=== PATIENT | male | born 1975 | race Caucasian/White ===

== ENCOUNTER 2017-09-08 20:13 | Emergency (ER) | payer OTHER ==
--- NOTE | 2017-09-08 20:34 | EDPHY ---
H & P Time Seen by Provider: 09/08/17 20:14 HPI/ROS: CHIEF COMPLAINT: Chest pain, nausea, dizziness HISTORY OF PRESENT ILLNESS: 41-year-old male presents to the emergency department by ambulance complaining of chest pain, feeling nauseous and dizzy after ingesting marijuana earlier this afternoon. The patient states that his friend made some coconut infused marijuana that he ate he thinks around 4 o' clock this afternoon. He apparently did vomit at home. His is at bedside states that he was feeling very nauseous and feeling like he could not control his arms or legs. He was complaining of some intermittent chest pain. He does have a history of cardiomyopathy. Denies difficulty breathing. He feels that he"can't move". REVIEW OF SYSTEMS: Constitutional: No fever, no chills. Eyes: No double or blurry vision. ENT: No sore throat. Respiratory: No cough, no shortness of breath. Cardiac: chest pain. Gastrointestinal: Nausea, vomited 1 time. No diarrhea. No abdominal pain. Genitourinary: No dysuria. Musculoskeletal: No neck or back pain. Skin: No rashes. Neurological: No headache. Past Medical/Surgical History: Cardiomyopathy on carvedilol Social History: Physical Exam: General Appearance: Alert, moderate distress. Anxious. Afebrile. Tearful. at bedside. Eyes: Pupils equal and round. Extraocular motions are all intact. ENT: Mouth: Mucous membranes moist. Respiratory: No wheezing, rhonchi, or rales, lungs are clear to auscultation. Cardiovascular: Regular rate and rhythm. Gastrointestinal: Abdomen is soft and nontender, no masses, no rebound or guarding, bowel sounds normal. Neurological: Alert and oriented x 3, cranial nerves II through XII grossly intact Skin: Warm and dry, no rashes. Musculoskeletal: Nontender to palpate along the cervical, thoracic or lumbar spine. Neck is supple. Extremities: Full range of motion and no peripheral edema. Psychiatric: Patient is oriented X 3, there is no agitation. Constitutional: Initial Vital Signs Temperature (C) 37.0 C 09/08/17 20:15 Heart Rate 62 09/08/17 20:15 Respiratory Rate 16 09/08/17 20:15 Blood Pressure 131/85 H 09/08/17 20:15 O2 Sat (%) 100 09/08/17 20:15 O2 Delivery Mode Room Air Allergies/Adverse Reactions: No Known Allergies Allergy (Verified 09/08/17 20:48) Home Medications: Medication Instructions Recorded Carvedilol [Coreg (RX)] 25 mg PO BIDMEAL 12/26/11 Sertraline HCl 09/08/17 Medical Decision Making ED Course/Re-evaluation: 41-year-old male presents to the emergency department after ingesting marijuana. He is feeling extremely anxious and feeling cramping pain all over. Patient has a normal neurologic examination. Patient was given IV normal saline. He did vomit 1 time. He is no longer feeling nauseous. His EKG is normal. This was ordered since he did have some transient chest pain after and consuming the marijuana. He denies any other substance abuse. He denies chest pain or difficulty breathing now. Denies headache now. Upon discharge, the patient was able to ambulate. He was tolerating p.o. Fluids. He is comfortable being discharged home. Differential Diagnosis: Including but not limited to adverse medication reaction, adverse drug reaction , anaphylaxis, CVA, myocardial infarction, electrolyte abnormality Departure - Departure Disposition: Home, Routine, Self-Care Clinical Impression: Adverse reaction to cannabis Qualifiers: Encounter type: initial encounter Qualified Code(s): T40.7X5A - Adverse effect of cannabis (derivatives), initial encounter Condition: Good Instructions: Adverse Drug Reaction (ED) Additional Instructions: Return if you develop any chest pain, difficulty breathing or any other concerns. Referrals: Christa Vitale MD [[facility] [place] Primary Care Provider] - As per Instructions (Primary care provider telephone ad taker)
--- NOTE | 2017-09-08 20:45 | CPEKG ---
Heart Rate: 71 RR Interval: 845 QRSD Interval: 110 QT Interval: 416 QTC Interval: 453 QRS [place]: 63 T Wave [place]: 26 EKG Severity - ABNORMAL ECG - EKG Impression: NSR EKG Impression: NONSPECIFIC INTRAVENTRICULAR CONDUCTION DELAY Electronically Signed By: Tracy Quispe 08-Sep-2017 22:57:52
[2017-09-08 21:08] VITALS: RESP 16; TEMP 98.6
[2017-09-08 21:47] VITALS: BP 119/73
[2017-09-09 00:05] VITALS: PULSE 80; O2SAT 98
== END 2017-09-08 23:30 | disposition home or self-care (01) ==
LOC: EDUNIT#
DX: R07.9 Chest pain, unspecified (principal); T40.7X5A Adverse effect of cannabis (derivatives), initial encounter